=== PATIENT | male | born 1985 | race Caucasian/White ===

== ENCOUNTER 2016-09-28 19:04 | Emergency (ER) | payer SELFPAY ==
[2016-09-28 20:10] VITALS: RESP 16
--- NOTE | 2016-09-28 21:20 | EDPHY ---
H & P Time Seen by Provider: 09/28/16 20:44 HPI/ROS: CHIEF COMPLAINT: swelling behind left ear HISTORY OF PRESENT ILLNESS: Patient is a 31-year-old male who presents emergency department with swelling on his left ear for couple of days. He thought he had an "infected blackhead." He was concerned that he has mastoiditis. Patient denies any fevers or chills. He has no visual change or eye pain. He has no headache. No nausea or vomiting. No recent trauma. No new exposures. REVIEW OF SYSTEMS: My complete review of systems is negative except as mentioned in the HPI. Past Medical/Surgical History: Denies Smoking Status: Current every day smoker Physical Exam: Vitals noted. Afebrile. General Appearance: Alert and no distress. Well-appearing. Head/ent: Pupils equal. Patient's left ear appears normal. Over the mastoid area, there is mild erythema but no bony tenderness palpation. No swelling. There is a small break in the skin behind his ear in the center of skin erythema. Respiratory: No respiratory distress. Cardiac: regular rate and rhythm. Extremities: Full range of motion, normal appearing. Skin: No rashes or lesions. Neuro: Alert. Normal mood and affect. Constitutional: Initial Vital Signs Temperature (C) 36.4 C 09/28/16 20:06 Heart Rate 69 09/28/16 20:06 Respiratory Rate 16 09/28/16 20:06 O2 Sat (%) 95 09/28/16 20:06 O2 Delivery Mode Room Air Allergies/Adverse Reactions: No Known Allergies Allergy (Unverified 09/28/16 20:06) Home Medications: Medication Instructions Recorded Cephalexin [Keflex (*)] 500 mg PO QID 7 Days 09/28/16 Medical Decision Making ED Course/Re-evaluation: In the emergency department I discussed possible etiologies with the patient. Answered all questions. I gave him warnings. He will be treated with Keflex. He will return with worsening symptoms. Differential Diagnosis: My differential includes but is not limited to mastoiditis, cellulitis, otitis externa, trauma, allergic reaction Departure - Departure Disposition: Home, Routine, Self-Care Clinical Impression: Cellulitis Qualifiers: Site of cellulitis: unspecified site Qualifier Code: (L03.90) Cellulitis, unspecified Condition: Good Instructions: Cellulitis (ED) Additional Instructions: Take your entire course of antibiotics. Return with increasing redness, pain, swelling, headache or any other concerns. Referrals: Peggy Gan MD [Medical Doctor] - 2-3 days, call for appt. Prescriptions: Cephalexin [Keflex (*)] 500 mg PO QID 7 Days
[2016-09-28] MEDS ORDERED: CEPHALEXIN 500MG PREPACK#4 BTL TAKEHOME ONE (21:22)
[2016-09-28 21:33] VITALS: BP 120/61; PULSE 79; TEMP 97.7; O2SAT 96
== END 2016-09-28 21:32 | disposition home or self-care (01) ==
DX: H60.12 Cellulitis of left external ear (principal); F17.200 Nicotine dependence, unspecified, uncomplicated